=== PATIENT | female | born 1950 | race Caucasian/White ===

== ENCOUNTER → 2016-12-10 | Outpatient (CLI) | payer OTHER ==
[~2016-12-10] MED LIST: ALPH300C PO; CALC500T68 PO; COLLAGEN PO; CYAN100020 PO; ESTR10TA PV; FOLI1TAB7 PO; LACT1CAP6 PO; MELATAB2 PO; OMEG10007 PO; PHOS1CAP3 PO; TRET0.027 TOP; [UNRECOGNIZED DRUG - CODE] PO; [UNRECOGNIZED DRUG - OTHER] PO
[2016-12-10 10:03] LABS: CALCIUM 9.3 mg/dl (8.5-10.1)
[2016-12-10 15:08] LABS: CALCIUM URINE < 5.0 mg/dl; URINE COLLECTION TIME 24 HOURS
[2016-12-11 16:52] LABS: ALBUMIN 4.3 G/DL (3.8-4.8); TOTAL PROTEIN 7.2 G/DL (6.2-8.3)
== END | disposition home or self-care (01) ==
LOC: C.LAB1850 07:58
PROVIDERS: ATTEND Internal Medicine Rheumatology
DX: E61.8 Deficiency of other specified nutrient elements (principal)

== ENCOUNTER → 2017-05-14 | Outpatient (CLI) | payer OTHER ==
--- NOTE | 2017-05-14 15:17 | MAMMOGRAPHY REPORT ---
BILATERAL DIGITAL SCREENING MAMMOGRAM WITH CAD: 05/14/2017 CLINICAL HISTORY: Routine screening. Patient has no complaints. TECHNIQUE: Bilateral CC and MLO views were obtained. Current study was also evaluated with a Computer Aided Detection (CAD) system. COMPARISON: Comparison is made to exams dated: 03/27/2016 mammogram, 02/16/2015 mammogram, 12/25/2012 raymon mogram, 12/20/2011 mammogram - [facility], 07/20/2008, and 10/08/2006. BREAST COMPOSITION: The tissue of both breasts is heterogeneously dense, which may obscure small mas ses. FINDINGS: There is a 4.5 mm nodular asymmetry in the slightly medial, middle one third of the left b reast, only seen on the CC tomosynthesis images (slice 37/56), for which additional spot compression tomosynthesis views and possible ultrasound are recommended. There are scattered benign-appearing calcifications in both breasts. No other suspicious mass, archi tectural distortion or cluster of microcalcifications is seen. IMPRESSION: ACR BI-RADS CATEGORY 0: INCOMPLETE EVALUATION: NEED ADDITIONAL IMAGING EVALUATION The 4.5 mm nodular asymmetry in the slightly medial left breast needs additional evaluation. The patient will be called to schedule an appointment. Approximately 10% of breast cancers are not detected with mammography. A negative mammographic report should not delay biopsy if a clinically suggestive mass is present. Roslyn Williamson M.D. ay/:05/14/2017 14:18:02 Ad Taker: Esperanza CASE)(Renate), [facility] letter sent: Addl Imaging 0 BI-RADS Code: ACR BI-RADS Category 0: Incomplete Evaluation: Need Additional Imaging Evaluation
== END | disposition home or self-care (01) ==
LOC: C.MAMM 11:42
PROVIDERS: ATTEND Internal Medicine
DX: Z12.31 Encounter for screening mammogram for malignant neoplasm of breast (principal); N63.20 Unspecified lump in the left breast, unspecified quadrant

== ENCOUNTER → 2017-10-24 | Outpatient (CLI) | payer OTHER ==
[~2017-10-24] MED LIST changes: -FOLI1TAB7 PO; +FOLI1TAB8 PO
[2017-10-24 12:29] LABS: ALBUMIN 3.9 gm/dl (3.4-5.0); ALT/SGPT 25 U/L (12-78); BLOOD UREA NITROGEN 14 mg/dl (7-18); CALCIUM 9.2 mg/dl (8.5-10.1); CARBON DIOXIDE 28 mmol/L (21-32); CHOLESTEROL 200 mg/dl (0-200); CREATININE 0.78 mg/dl (0.60-1.20); GLUCOSE 88 mg/dl (70-99); POTASSIUM 3.8 mmol/L (3.5-5.1); SODIUM 139 mmol/L (136-145)
[2017-10-24 12:40] LABS: ALKALINE PHOSPHATASE 43 U/L (45-117); AST/SGOT 16 U/L (15-37); LDL CHOLESTEROL CALCULATED 102 mg/dl; TOTAL PROTEIN 7.4 gm/dl (6.4-8.2)
== END | disposition home or self-care (01) ==
LOC: C.LAB1850 10:22
PROVIDERS: ATTEND Internal Medicine
DX: Z00.00 Encounter for general adult medical examination without abnormal findings (principal); M81.0 Age-related osteoporosis without current pathological fracture; E55.9 Vitamin D deficiency, unspecified

== ENCOUNTER 2019-02-11 21:39 | Observation (INO) ==
[2019-02-11 21:57] LABS: Basophils # (auto) 0.01 K/uL (0-0.2); Basophils % (auto) 0.1 %; Eosinophils # (auto) 0.04 K/uL (0-0.5); Eosinophils % (auto) 0.5 %; Hematocrit (blood only) 36.7 % (37-47); Hemoglobin 12.4 g/dL (12.0-16.0); Immature Granulocytes # (auto) 0.01 K/uL (0.00-0.02); Immature Granulocytes % (auto) 0.1 %; Lymphocytes # (auto) 2.94 K/uL (1.2-3.4); Lymphocytes % (auto) 40.1 %; Mean Corpuscular Hgb Conc 33.8 g/dL (32-36); Mean Corpuscular Volume 91.5 fL (80-100); Mean Platelet Volume 10.5 fL (7.4-10.4); Monocytes # (auto) 0.45 K/uL (0.11-0.59); Monocytes % (auto) 6.1 %; Neutrophils # (auto) 3.88 K/uL (1.4-6.5); Neutrophils % (auto) 53.1 %; Platelet Count 221 K/uL (130-400); RDW Coefficient of Variation 12.9 % (11.5-14.5); RDW Standard Deviation 43.5 fL (36.4-46.3); Red Blood Count 4.01 M/uL (4.2-5.4); White Blood Count 7.33 K/uL (4.8-10.8)
[2019-02-11 22:07] LABS: Alanine Aminotransferase 162 U/L (12-78); Aspartate Aminotransferase 285 U/L (15-37); BUN Creatinine Ratio 24.6 (10-20); Blood Urea Nitrogen 19 mg/dl (7-18); Calcium 9.1 mg/dl (8.5-10.1); Carbon Dioxide 24 mmol/L (21-32); Chloride 106 mmol/L (98-107); Est GFR (African American) 89.3; Glucose 154 mg/dl (70-99); Magnesium 1.9 mg/dl (1.8-2.4); Potassium 3.6 mmol/L (3.5-5.1); Sodium 140 mmol/L (136-145)
--- NOTE | 2019-02-11 22:10 | XRay Report ---
XR chest 1V portable CLINICAL HISTORY: Chest Pain dyspnea COMPARISON STUDY: No previous studies for comparison. FINDINGS: The bones soft tissues and hemidiaphragms are normal. The cardiomediastinal silhouette is n ormal. The lungs are clear. The pulmonary vasculature is normal. IMPRESSION: Negative chest. The above report was generated using voice recognition software. It may contain grammatical, syntax or spelling errors. Electronically signed by: Dank Goldstein M.D. 02/11/2019 10:09 PM
[2019-02-11 22:12] LABS: Albumin Globulin Ratio 1.1 (0.9-2); Alkaline Phosphatase 59 U/L (45-117); Bilirubin,Total 0.8 mg/dl (0.2-1); Globulin 3.5 gm/dl (2.5-4.0); Total Protein 7.5 gm/dl (6.4-8.2); Troponin I < 0.015 ng/ml (0-0.045)
[2019-02-11] MEDS ORDERED: OPTIRAY 320 125ml IV PRN (22:40)
--- NOTE | 2019-02-11 22:50 | Emergency Department Note ---
History of Present Illness General Chief complaint: Chest Pain Stated complaint: CHEST PAIN Time Seen by Provider: 02/11/19 21:51 History of Present Illness Maximum Pain Intensity: 1 This 68-year-old presents to the ER complaining of squeezing chest pain Location: Mid chest Quality: Squeezing Severity: Moderate Duration: Tonight Timing: Started tonight Context: Symptoms got worse and patient summoned EMS Modifying factors: better with nitroglycerin; worse with nothing Patient states she had 3 glasses of wine tonight with dinner. She states shortly after that she developed the chest pain. She describes it as squeezing and severe. She was concerned and called EMS. Patient denies dyspnea, abdominal pain, leg weakness, fever, chills, cough, congestion, diaphoresis. No prior heart disease. She has no active medical problems. She states she has a glass of wine daily. Home Medications Home Medications Medication Instructions Recorded Confirmed Type Ca carb-Ca gluc-Mg ox-Mg gluco 1 tab PO QAM 02/11/19 02/11/19 History [Calcium Magnesium] Phosphatidylserine 0 mg PO QAM 02/11/19 History Sleep Optimizer 1 cap PO HS 02/11/19 History alpha lipoic acid 0 mg PO QAM 02/11/19 02/11/19 History coenzyme Q10 [Co Q-10] 0 mg PO QAM 02/11/19 02/11/19 History cyanocobalamin (vitamin B-12) 0 mcg PO QAM 02/11/19 02/11/19 History estradiol [Vagifem] 10 mcg VAGINAL 2XWK 02/11/19 02/11/19 History omega 7-egq-rpl-fish oil [Fish Oil] 1 cap PO QAM 02/11/19 02/11/19 History tretinoin 1 applic TOPICAL UD PRN 02/11/19 02/11/19 History Allergies Allergy/AdvReac Type Severity Reaction Status Date / Time grass pollen-perennial rye, Allergy Unknown hay fever Verified 02/11/19 22:57 standar lactose Allergy Unknown GI UPSET Verified 02/11/19 22:57 nickel Allergy Unknown contact Verified 02/11/19 22:57 dermatitis No Known Drug Allergies Allergy Unknown NKDA Verified 02/11/19 22:57 pollen extracts Allergy Unknown hayfever Verified 02/11/19 22:57 Past Med/Surg History Medical History No acute medical problems Social History Feels Safe at Home: Yes Smoking Status: Former smoker Review of Systems All systems reviewed & are unremarkable except as noted in HPI & below Physical Exam Vital Signs Vital Signs - 24 hr 02/11/19 21:49 02/11/19 22:19 02/11/19 22:49 Temperature 36.7 C Temperature Source Oral Sepsis Recent Fever Within 48 Hours No Sepsis New/Unexplained Change in Mental Status No Sepsis Action Taken by Nursing No Action Required Pulse Rate 71 Pulse Rate [Apical] 68 Respiratory Rate 21 20 Respiratory Effort / Characteristics Non-Labored Non-Labored Spontaneous Respiratory Depth Normal Normal Respiratory Pattern Regular Regular Blood Pressure 122/77 Blood Pressure [Right Arm] 126/75 Blood Pressure Mean 92 Blood Pressure Mean [Right Arm] 92 Blood Pressure Position Lying Blood Pressure Position [Right Arm] Lying Pulse Oximetry 98 98 100 Oxygen Delivery Method Room Air Room Air Room Air 02/11/19 23:22 Temperature Temperature Source Sepsis Recent Fever Within 48 Hours Sepsis New/Unexplained Change in Mental Status Sepsis Action Taken by Nursing Pulse Rate Pulse Rate [Apical] 70 Respiratory Rate 20 Respiratory Effort / Characteristics Respiratory Depth Normal Respiratory Pattern Blood Pressure Blood Pressure [Right Arm] 106/67 Blood Pressure Mean Blood Pressure Mean [Right Arm] 80 Blood Pressure Position Blood Pressure Position [Right Arm] Pulse Oximetry 96 Oxygen Delivery Method Room Air VITALS: Vitals are noted on the nurse's note and reviewed by myself. Vital signs stable. GENERAL: Pleasant female, in no acute distress, nondiaphoretic, well-developed well-nourished. SKIN: The skin was without rashes, erythema, edema, or bruising. There is no tenting of the skin. Capillary reflex less than 2 seconds. HEAD: Normocephalic atraumatic. EARS: External auditory canals clear, tympanic membranes pearly clement without erythema or effusion bilaterally. EYES: Pupils equal round and reactive to light and accommodation. Conjunctivae without injection, sclerae without icterus. Extraocular movements intact. NOSE: Patent, turbinates without inflammation or discharge. MOUTH: Mucous membranes moist. Pharynx without erythema or exudate. Uvula midline. Airway patent. Tongue does not deviate. NECK: Supple without nuchal rigidity. No lymphadenopathy. No thyromegaly. Cervical spine is nontender. No JVD. HEART: Regular rate and rhythm LUNGS: Clear to auscultation bilaterally without wheezes, rales or rhonchi. No retractions or accessory muscle use. ABDOMEN: Positive bowel sounds x 4. Normal tympanic percussion. Soft, nontender, without masses or organomegaly. Richardson sign negative. No guarding or rebound tenderness. No CVA tenderness MUSCULOSKELETAL: No muscle atrophy, erythema, or edema noted. NEURO: Patient was alert and oriented to person place and time. Normal sensation to light and sharp touch. No focal neurological deficits. Course Administered Medications Ioversol (Optiray 320 125ml) 116 ml IV ONCE PRN PRN Reason: Interaction Checking Stop: 02/15/19 22:39 Last Admin: 02/11/19 22:41 Dose: 116 ml Documented by: [id number] Medical Decision Making Medical Records Attestation: I reviewed the patient's medical records. Home Medications Current Medication List: was personally reviewed by me Laboratory Data Attestation: I reviewed the patient's lab results. Result diagrams: 02/11/19 21:12 02/11/19 21:12 Lab Results 02/11/19 02/11/19 02/11/19 Range/Units 21:12 21:12 21:54 WBC 7.33 (4.8-10.8) K/uL RBC 4.01 L (4.2-5.4) M/uL Hgb 12.4 (12.0-16.0) g/dL Hct 36.7 L (37-47) % MCV 91.5 (80-100) fL MCH 30.9 (25-34) pg MCHC 33.8 (32-36) g/dL RDW Std Deviation 43.5 (36.4-46.3) fL RDW Coeff of [place] 12.9 (11.5-14.5) % Plt Count 221 (130-400) K/uL MPV 10.5 H (7.4-10.4) fL Immature Gran % (Auto) 0.1 % Neut % (Auto) 53.1 % Lymph % (Auto) 40.1 % [place] % (Auto) 6.1 % Eos % (Auto) 0.5 % Baso % (Auto) 0.1 % Immature Gran # (Auto) 0.01 (0.00-0.02) K/uL Neut # (Auto) 3.88 (1.4-6.5) K/uL Lymph # (Auto) 2.94 (1.2-3.4) K/uL [place] # (Auto) 0.45 (0.11-0.59) K/uL Eos # (Auto) 0.04 (0-0.5) K/uL Baso # (Auto) 0.01 (0-0.2) K/uL PT (9.0-12.0) Seconds INR (0.9-1.1) APTT (21.0-31.0) Seconds PTT Ratio Sodium 140 (136-145) mmol/L Potassium 3.6 (3.5-5.1) mmol/L Chloride 106 (98-107) mmol/L Carbon Dioxide 24 (21-32) mmol/L Anion Gap 10.0 (3-11) BUN 19 H (7-18) mg/dl Creatinine 0.78 (0.6-1.2) mg/dl Est Cr Clr Drug Dosing 60.0 ml/min Est GFR ( Amer) 89.3 Est GFR (Non-Af Amer) 77.0 BUN/Creatinine Ratio 24.6 H (10-20) Glucose 154 H (70-99) mg/dl Calcium 9.1 (8.5-10.1) mg/dl Magnesium 1.9 (1.8-2.4) mg/dl Total Bilirubin 0.8 (0.2-1) mg/dl AST 285 H (15-37) U/L ALT 162 H (12-78) U/L Alkaline Phosphatase 59 (45-117) U/L POC Troponin I < 0.03 (0-0.045) ng/ml Troponin I < 0.015 (0-0.045) ng/ml Total Protein 7.5 (6.4-8.2) gm/dl Albumin 4.0 (3.4-5.0) gm/dl Globulin 3.5 (2.5-4.0) gm/dl Albumin/Globulin Ratio 1.1 (0.9-2) Lipase 226 (73-393) U/L Ethyl Alcohol mg/dL (0-3) mg/dl 02/11/19 02/11/19 Range/Units 22:55 22:55 WBC (4.8-10.8) K/uL RBC (4.2-5.4) M/uL Hgb (12.0-16.0) g/dL Hct (37-47) % MCV (80-100) fL MCH (25-34) pg MCHC (32-36) g/dL RDW Std Deviation (36.4-46.3) fL RDW Coeff of [place] (11.5-14.5) % Plt Count (130-400) K/uL MPV (7.4-10.4) fL Immature Gran % (Auto) % Neut % (Auto) % Lymph % (Auto) % [place] % (Auto) % Eos % (Auto) % Baso % (Auto) % Immature Gran # (Auto) (0.00-0.02) K/uL Neut # (Auto) (1.4-6.5) K/uL Lymph # (Auto) (1.2-3.4) K/uL [place] # (Auto) (0.11-0.59) K/uL Eos # (Auto) (0-0.5) K/uL Baso # (Auto) (0-0.2) K/uL PT 10.6 (9.0-12.0) Seconds INR 1.0 (0.9-1.1) APTT 22.6 (21.0-31.0) Seconds PTT Ratio 0.8 Sodium (136-145) mmol/L Potassium (3.5-5.1) mmol/L Chloride (98-107) mmol/L Carbon Dioxide (21-32) mmol/L Anion Gap (3-11) BUN (7-18) mg/dl Creatinine (0.6-1.2) mg/dl Est Cr Clr Drug Dosing ml/min Est GFR ( Amer) Est GFR (Non-Af Amer) BUN/Creatinine Ratio (10-20) Glucose (70-99) mg/dl Calcium (8.5-10.1) mg/dl Magnesium (1.8-2.4) mg/dl Total Bilirubin (0.2-1) mg/dl AST (15-37) U/L ALT (12-78) U/L Alkaline Phosphatase (45-117) U/L POC Troponin I (0-0.045) ng/ml Troponin I (0-0.045) ng/ml Total Protein (6.4-8.2) gm/dl Albumin (3.4-5.0) gm/dl Globulin (2.5-4.0) gm/dl Albumin/Globulin Ratio (0.9-2) Lipase (73-393) U/L Ethyl Alcohol mg/dL 132.8 H (0-3) mg/dl Imaging Data Attestation: I personally reviewed and interpreted this imaging study as follows: Blood Pressure Blood Pressure Findings: Normal blood pressure MDM Narrative Prior records/ancillary studies reviewed. Triage Nursing notes reviewed. Additional history obtained from family. The patient's history was concerning for chest pain. Differential diagnosis: Etiologies such as cardiac ischemia, aortic dissection, pulmonary embolism, pneumonia, pneumothorax, musculoskeletal, infections, pericarditis, myocarditis, esophageal rupture, gastrointestinal, as well as others were entertained. Physical examination: As above. ER treatment provided: Nitroglycerin. Patient already took aspirin On reassessment the patient felt better. Diagnostic interpretation by me: The electrocardiogram was negative for pathologic change. Normal sinus, normal intervals, no acute ST-T wave changes. Rate 71. Impression normal sinus rhythm interpreted by myself I think arrhythmia is unlikely. EKG shows normal sinus rhythm with no interval abnormalities such as QT prolongation or WPW. There are no findings to suggest Brugada syndrome. Cardiac monitoring in the emergency department reveals no tachycardic or bradycardic dysrhythmia. Hypertrophic cardiomyopathy was considered but there are no clear historical elements pointing toward this. EKG is not suggestive. The QRS voltage is not extremely large and there are no sug gestive Q waves. The labs revealed negative troponin. Elevated LFTs. Hepatitis panel was sent. Alcohol level was sent. Negative troponin Imaging studies: XR chest 1V portable CLINICAL HISTORY: Chest Pain dyspnea COMPARISON STUDY: No previous studies for comparison. FINDINGS: The bones soft tissues and hemidiaphragms are normal. The cardiomediastinal silhouette is normal. The lungs are clear. The pulmonary vasculature is normal. IMPRESSION: Negative chest. The above report was generated using voice recognition software. It may contain grammatical, syntax or spelling errors. Electronically signed by: Dank Goldstein M.D. 02/11/2019 10:09 PM Dictated: 02/11/19 2207 Transcribed: 02/11/192207 Patient: YADY CAMPA Admit Date: 02/11/19 MR#: [id number] Address1: [address] [place] Acct ID:[id number] Address2: Date: 1950 [facility] Zip: [place] [address] Age: 68 Location: ED Sex: F Room/Bed: Att Phy: Diagnosis: CHEST PAIN Deanna Phy: Jenniffer Rain MD Service Date: 02/11/19 [facility] Phy: Interpreting Phy: Dank Goldstein MD Admit Phy: Ordering Phy: Maribell Quinones .CHRISTIANO cc: ~ CT angio chest dissec wo/w con CT DOSE: 391.73 mGy.cm HISTORY: Chest pain cp to back TECHNIQUE: Multiaxial CT images of the chest, abdomen, and pelvis were performed both before and after the intravenous administration of contrast to evaluate the aorta. Maximal intensity projection images were also obtained. A dose lowering technique was utilized adhering to the principles of ALARA. COMPARISON STUDY: None. FINDINGS: Thoracic aorta is negative for aneurysm or dissection. Pulmonary vasculature and enhances appropriately. There are no significant filling defects. Lungs are considered clear. No focal infiltrate. No evidence for pneumothorax. Limited evaluation of the upper abdomen is unremarkable. There is a small cyst of the left buttock lobe unchanged from the prior exam. IMPRESSION: 1. Negative CT of the chest, thoracic aorta, and pulmonary arterial vasculature. The above report was generated using voice recognition software. It may contain grammatical, syntax or spelling errors. Electronically signed by: Dank Goldstein M.D. HEART SCORE: Hx: high/mod/low suspicion: 1 ECG: ST depression/nonspecific changes/normal: 0 Age: Greater than 65/45-64/less than 45: 2 Risk factors: (Hypertension, hyperlipidemia, diabetes, coronary disease, tobacco use, cocaine use): 0 Troponin: Greater than 2 times normal limits/1-2 times normal limits/normal: 0 Total: 3 Consultation: A consultation was placed with the hospitalist. The case was discussed and diagnostics were reviewed. The patient was evaluated in the ER for further treatment. Exam and history seem consistent with chest pain that was relieved with nitrogly cerin. Repeat EKG is unchanged. First troponin was negative. Patient's LFTs are elevated. She does drink alcohol. Coags and hepatitis panel was sent. Medicine was consulted. Patient is agreeable treatment plan of admission. By the evaluation outlined above emergent etiologies such as aortic dissection, pulmonary embolism, pneumonia, pneumothorax, infections, pericarditis, myocarditis, gastrointestinal, as well as others were deemed relatively unlikely. Case reviewed with my attending The chart was completed utilizing [employer] voice recognition software. Grammatical errors, random word insertions, pronoun errors, and incomplete sentences are an occassional consequence of this system due to software limitations, ambient noise, and hardware issues. Any formal questions or concerns about the content, text, or information contained within the body of this dictation should be directly addressed to the physician resident assistant cna for clarification. Impression & Plan Atypical chest pain, Elevated liver enzymes Discharge Plan Visit Data Chief Complaint: Chest Pain Stated Complaint: CHEST PAIN ED Provider: Noel Bragg ED Midlevel Provider: Maribell Quinones Discharge Problem: Atypical chest pain, Elevated liver enzymes Patient Disposition: Being Evaluated by Hospitalist Condition: Good Forms Stand Alone Forms: Call Back Authorization, My [facility] Prescriptions Prescriptions: No Action cyanocobalamin (vitamin B-12) 1,000 mcg Tablet PO QAM RF: 0 tretinoin 0.05 % cream 1 applic topical UD PRN (Reason: Rash) RF: 0 coenzyme Q10 [Co Q-10] 50 mg Capsule PO QAM RF: 0 estradiol [Vagifem] 10 mcg Tablet 10 mcg VAGINAL 2XWK RF: 0 omega 9-ddk-mhs-fish oil [Fish Oil] 1,000 mg (120 mg-180 mg) Capsule 1 cap PO QAM RF: 0 alpha lipoic acid 200 mg Capsule PO QAM RF: 0 Calcium Magnesium 500 mg calcium -250 mg Tablet 1 tab PO QAM RF: 0 Phosphatidylserine 100 mg PO QAM RF: 0 Sleep Optimizer 1 cap PO HS RF: 0 Referrals Referrals: Jenniffer Rain MD [Primary Care Provider] -
--- NOTE | 2019-02-11 23:06 | Emergency Department Note ---
ED Visit Note The patient presents to the emergency department with chief complaint of chest pain. A CT scan angiogram of the chest did not show acute process. Her pain improved with nitroglycerin. I have personally seen and evaluated the patient with the physician medical assistant cardiology. I agree with the diagnostic/management decisions and have personally been in volved in these decisions and agree with the diagnosis. .
[2019-02-11 23:22] LABS: Partial Thromboplastin Ratio 0.8; Partial Thromboplastin Time 22.6 Seconds (21.0-31.0); Prothrombin Time 10.6 Seconds (9.0-12.0)
--- NOTE | 2019-02-11 23:42 | History & Physical Report ---
Date of Service February 11, 2019 Assessment & Plan (1) Atypical chest pain: This is a 73-year-old female who is otherwise healthy who presents with bilateral subchondral sensation of tightness and spasm associated with dyspnea that occurred shortly after her dinner earlier this evening. Her who has a cardiac history told her to take 2 aspirin and they called EMS. She was given nitroglycerin in route which helped relieve her symptoms. Her symptoms did recur here in the ED. Apparently self resolved. She states she drank 3 glasses of wine with dinner as well. She denies any history of reflux. She exercises daily including weights and abdominal crunches and denies any anginal symptoms with activity. She states that she actually presented to her PCP 4 weeks ago with similar complaints but it was only on her left side. At that point labs and an ultrasound was done -CBC was unremarkable, chemistry was unremarkable including no transaminitis. Ultrasound showed prior cholecystectomy, small bilateral peripelvic renal cysts with no hydronephrosis and a 1.2 cm left hepatic lobe cyst. ED course: Labs remarkable for transaminitis AST/ALT 285/162. Negative troponin x1. Negative lipase. Her EKG shows no dynamic ST changes, chest x-ray, CTA of the chest have all been normal. Atypical chest pain: -Consult cardiology -TTE in a.m. -Monitor on telemetry -Daily aspirin -Fasting lipid panel and A1c and TSH in the morning FEN/GI: N.p.o. except for sips, normal saline at 80 mL's per hour DVT ppx: Lovenox CODE STATUS: Full code as discussed with patient DISPO: Med telemetry (2) Elevated liver enzymes: Hepatitis panel pending Trend CMP Could be nonalcoholic steatosis, hepatitis, congestive. Lobe cyst likely unrelated to her current complaints. History of Present Illness Chief Complaint: Bilateral subchondral tightness and spasms, dyspnea, postprandial Primary Care Provider: Jenniffer Rain MD This is a 73-year-old female who is otherwise healthy who presents with bilateral subchondral sensation of tightness and spasm associated with dyspnea that occurred shortly after her dinner earlier this evening. Her who has a cardiac history told her to take 2 aspirin and they called EMS. She was given nitroglycerin in route which helped relieve her symptoms. Her symptoms did recur here in the ED. Apparently self resolved. She states she drank 3 glasses of wine with dinner as well. She denies any history of reflux. She exercises daily including weights and abdominal crunches and denies any anginal symptoms with activity. She states that she actually presented to her PCP 4 weeks ago with similar complaints but it was only on her left side. At that point labs and an ultrasound was done -CBC was unremarkable, chemistry was unremarkable including no transaminitis. Ultrasound showed prior cholecystectomy, small bilateral peripelvic renal cysts with no hydronephrosis and a 1.2 cm left hepatic lobe cyst. ED course: Labs remarkable for transaminitis AST/ALT 285/162. Negative troponin x1. Negative lipase. Her EKG shows no dynamic ST changes, chest x-ray, CTA of the chest have all been normal. PMH: Cholecystitis, hip fracture. PSH: Cholecystectomy SH: Exercises daily without any anginal symptoms. Lives with her . Drinks 1 to 3 glasses of wine per night. Denies drug use. Allergies Allergy/AdvReac Type Severity Reaction Status Date / Time grass pollen-perennial rye, Allergy Unknown hay fever Verified 02/11/19 22:57 standar lactose Allergy Unknown GI UPSET Verified 02/11/19 22:57 nickel Allergy Unknown contact Verified 02/11/19 22:57 dermatitis No Known Drug Allergies Allergy Unknown NKDA Verified 02/11/19 22:57 pollen extracts Allergy Unknown hayfever Verified 02/11/19 22:57 Home Medications Home Medications Medication Instructions Recorded Confirmed Type Calcium Magnesium 1 tab PO QAM 02/11/19 02/11/19 History Phosphatidylserine 0 mg PO QAM 02/11/19 History Sleep Optimizer 1 cap PO HS 02/11/19 History alpha lipoic acid 0 mg PO QAM 02/11/19 02/11/19 History coenzyme Q10 [Co Q-10] 0 mg PO QAM 02/11/19 02/11/19 History cyanocobalamin (vitamin B-12) 0 mcg PO QAM 02/11/19 02/11/19 History estradiol [Vagifem] 10 mcg VAGINAL 2XWK 02/11/19 02/11/19 History omega 2-ado-obr-fish oil [Fish Oil] 1 cap PO QAM 02/11/19 02/11/19 History tretinoin 1 applic TOPICAL UD PRN 02/11/19 02/11/19 History Past Med/Surg History Medical History No acute medical problems Social History Preferred Language: Albanian Communication Ability: Effective Hematology Supervisor Required: No Beliefs That Will Affect Care: None Current Living Situation: Spouse Feels Safe at Home: Yes Smoking Status: Former smoker Tobacco Type: cigarettes Second Hand Exposure: No Hx Alcohol Use: Yes Alcohol type: wine Hx Substance Use: No Review of Systems Review of Systems: All systems reviewed & are unremarkable except as noted in HPI & below Physical Exam Physical Exam: Vitals noted and within normal limits GENERAL: Awake, alert to person, place, and time, nontoxic-appearing, in no distress. HENT: Normocephalic, atraumatic. Mucus membranes appear moist. EYES: Normal conjunctiva. Sclera non-icteric. EOMI. NECK: Supple. Full range of motion. No JVD. RESPIRATORY: Clear to auscultation. Normal work of breathing. CARDIAC: Regular rate, normal rhythm. Extremities warm and well perfused, 2+ radial pulses bilaterally; 2+ posterior tibialis pulses bilaterally. Mild systolic 1 out of 6 systolic murmur. ABDOMEN: Soft, non-distended. Mild tenderness to palpation in the epigastric area. No rebound or guarding. LOWER EXTREMITIES: Inspection of calves reveal equal size bilaterally. They are non-tender. No edema. No discoloration. NEURO: No gross focal motor deficits noted. Sensation in tact. CN II-XII grossly in tact. . SKIN: Rash not present. No jaundice noted. Significant lesions not present. PSYCH: Appropriate mood and affect. Cooperative. MSK: TTP at left costal midclavicular line along rib 7 through 9 Exam as done by Monica Bailon MD, Leadership Intern. Results & Data Vital Signs (Past 12 Hours) Vital Signs Temp Pulse Pulse Resp BP BP Pulse Ox 02/11/19 23:22 70 20 106/67 96 02/11/19 22:49 68 20 126/75 100 02/11/19 22:19 98 02/11/19 21:49 36.7 C 71 21 122/77 98 Laboratory Results 02/11/19 02/11/19 02/11/19 Range/Units 22:55 22:55 22:55 WBC (4.8-10.8) K/uL RBC (4.2-5.4) M/uL Hgb (12.0-16.0) g/dL Hct (37-47) % MCV (80-100) fL MCH (25-34) pg MCHC (32-36) g/dL RDW Std Deviation (36.4-46.3) fL RDW Coeff of [place] (11.5-14.5) % Plt Count (130-400) K/uL MPV (7.4-10.4) fL Immature Gran % (Auto) % Neut % (Auto) % Lymph % (Auto) % [place] % (Auto) % Eos % (Auto) % Baso % (Auto) % Immature Gran # (Auto) (0.00-0.02) K/uL Neut # (Auto) (1.4-6.5) K/uL Lymph # (Auto) (1.2-3.4) K/uL [place] # (Auto) (0.11-0.59) K/uL Eos # (Auto) (0-0.5) K/uL Baso # (Auto) (0-0.2) K/uL PT (9.0-12.0) Seconds INR (0.9-1.1) APTT (21.0-31.0) Seconds PTT Ratio Sodium (136-145) mmol/L Potassium (3.5-5.1) mmol/L Chloride (98-107) mmol/L Carbon Dioxide (21-32) mmol/L Anion Gap (3-11) BUN (7-18) mg/dl Creatinine (0.6-1.2) mg/dl Est Cr Clr Drug Dosing ml/min Est GFR ( Amer) Est GFR (Non-Af Amer) BUN/Creatinine Ratio (10-20) Glucose (70-99) mg/dl Calcium (8.5-10.1) mg/dl Magnesium (1.8-2.4) mg/dl Total Bilirubin (0.2-1) mg/dl AST (15-37) U/L ALT (12-78) U/L Alkaline Phosphatase (45-117) U/L POC Troponin I (0-0.045) ng/ml Troponin I (0-0.045) ng/ml Total Protein (6.4-8.2) gm/dl Albumin (3.4-5.0) gm/dl Globulin (2.5-4.0) gm/dl Albumin/Globulin Ratio (0.9-2) Lipase (73-393) U/L Ethyl Alcohol mg/dL 132.8 H (0-3) mg/dl Hepatitis A IgM Ab Pending Hep Bs Antigen Neg (Neg) Hep B Core IgM Ab Pending Hepatitis C Antibody Pending 02/11/19 02/11/19 02/11/19 Range/Units 22:55 21:54 21:12 WBC (4.8-10.8) K/uL RBC (4.2-5.4) M/uL Hgb (12.0-16.0) g/dL Hct (37-47) % MCV (80-100) fL MCH (25-34) pg MCHC (32-36) g/dL RDW Std Deviation (36.4-46.3) fL RDW Coeff of [place] (11.5-14.5) % Plt Count (130-400) K/uL MPV (7.4-10.4) fL Immature Gran % (Auto) % Neut % (Auto) % Lymph % (Auto) % [place] % (Auto) % Eos % (Auto) % Baso % (Auto) % Immature Gran # (Auto) (0.00-0.02) K/uL Neut # (Auto) (1.4-6.5) K/uL Lymph # (Auto) (1.2-3.4) K/uL [place] # (Auto) (0.11-0.59) K/uL Eos # (Auto) (0-0.5) K/uL Baso # (Auto) (0-0.2) K/uL PT 10.6 (9.0-12.0) Seconds INR 1.0 (0.9-1.1) APTT 22.6 (21.0-31.0) Seconds PTT Ratio 0.8 Sodium 140 (136-145) mmol/L Potassium 3.6 (3.5-5.1) mmol/L Chloride 106 (98-107) mmol/L Carbon Dioxide 24 (21-32) mmol/L Anion Gap 10.0 (3-11) BUN 19 H (7-18) mg/dl Creatinine 0.78 (0.6-1.2) mg/dl Est Cr Clr Drug Dosing 60.0 ml/min Est GFR ( Amer) 89.3 Est GFR (Non-Af Amer) 77.0 BUN/Creatinine Ratio 24.6 H (10-20) Glucose 154 H (70-99) mg/dl Calcium 9.1 (8.5-10.1) mg/dl Magnesium 1.9 (1.8-2.4) mg/dl Total Bilirubin 0.8 (0.2-1) mg/dl AST 285 H (15-37) U/L ALT 162 H (12-78) U/L Alkaline Phosphatase 59 (45-117) U/L POC Troponin I < 0.03 (0-0.045) ng/ml Troponin I < 0.015 (0-0.045) ng/ml Total Protein 7.5 (6.4-8.2) gm/dl Albumin 4.0 (3.4-5.0) gm/dl Globulin 3.5 (2.5-4.0) gm/dl Albumin/Globulin Ratio 1.1 (0.9-2) Lipase 226 (73-393) U/L Ethyl Alcohol mg/dL (0-3) mg/dl Hepatitis A IgM Ab Hep Bs Antigen (Neg) Hep B Core IgM Ab Hepatitis C Antibody 02/11/19 Range/Units 21:12 WBC 7.33 (4.8-10.8) K/uL RBC 4.01 L (4.2-5.4) M/uL Hgb 12.4 (12.0-16.0) g/dL Hct 36.7 L (37-47) % MCV 91.5 (80-100) fL MCH 30.9 (25-34) pg MCHC 33.8 (32-36) g/dL RDW Std Deviation 43.5 (36.4-46.3) fL RDW Coeff of [place] 12.9 (11.5-14.5) % Plt Count 221 (130-400) K/uL MPV 10.5 H (7.4-10.4) fL Immature Gran % (Auto) 0.1 % Neut % (Auto) 53.1 % Lymph % (Auto) 40.1 % [place] % (Auto) 6.1 % Eos % (Auto) 0.5 % Baso % (Auto) 0.1 % Immature Gran # (Auto) 0.01 (0.00-0.02) K/uL Neut # (Auto) 3.88 (1.4-6.5) K/uL Lymph # (Auto) 2.94 (1.2-3.4) K/uL [place] # (Auto) 0.45 (0.11-0.59) K/uL Eos # (Auto) 0.04 (0-0.5) K/uL Baso # (Auto) 0.01 (0-0.2) K/uL PT (9.0-12.0) Seconds INR (0.9-1.1) APTT (21.0-31.0) Seconds PTT Ratio Sodium (136-145) mmol/L Potassium (3.5-5.1) mmol/L Chloride (98-107) mmol/L Carbon Dioxide (21-32) mmol/L Anion Gap (3-11) BUN (7-18) mg/dl Creatinine (0.6-1.2) mg/dl Est Cr Clr Drug Dosing ml/min Est GFR ( Amer) Est GFR (Non-Af Amer) BUN/Creatinine Ratio (10-20) Glucose (70-99) mg/dl Calcium (8.5-10.1) mg/dl Magnesium (1.8-2.4) mg/dl Total Bilirubin (0.2-1) mg/dl AST (15-37) U/L ALT (12-78) U/L Alkaline Phosphatase (45-117) U/L POC Troponin I (0-0.045) ng/ml Troponin I (0-0.045) ng/ml Total Protein (6.4-8.2) gm/dl Albumin (3.4-5.0) gm/dl Globulin (2.5-4.0) gm/dl Albumin/Globulin Ratio (0.9-2) Lipase (73-393) U/L Ethyl Alcohol mg/dL (0-3) mg/dl Hepatitis A IgM Ab Hep Bs Antigen (Neg) Hep B Core IgM Ab Hepatitis C Antibody Supervising Physician Co-Signing Physician Notes Attending addendum: I have physically seen this patient, have supervised the medical residents activities, and agree with the H&P unless as otherwise noted. Assessment and Plan: Chest pain- The patient will be admitted to telemetry for serial cardiac enzymes, serial EKG's, cardiac rhythm monitoring and a 2-D echocardiogram with Dopplers. Chewable aspirin 81 mg daily. Abnormal liver enzymes- Patient reports that she had 3 alcoholic drinks prior to going out and working outside last night. AST 285, ALT 162. Enzymes not improved in the morning, would do further work-up including ultrasound. Discussed other etiologies such as ulcers, cholecystitis, gastritis and others as potential causes of her symptoms. Remaining orders notations as noted. PG Care Time/CCT Total # of Minutes Spent Total Time Spent with Patient: Total time spent is greater than 50% in coordination of care (as documented) at patient's floor/unit and/or counseling patient: Resident Activity Tracking Resident Involvement: Resident Care Provided Care Provided: Adult Hospital Medicine
[2019-02-11 23:51] LABS: Hepatitis B Surface Antigen Neg (Neg)
[2019-02-12 01:19] LABS: Hepatitis C IgG 13Yrs+Old_Rflx Neg (Neg)
[2019-02-12] MEDS ORDERED: MAGNESIUM HYDROXIDE SUSP 30 ML UDC PO PRN (01:54)
[2019-02-12] MEDS ORDERED: ONDANSETRON INJ 2 MG/ML 2 ML VIAL IV PRN (01:54)
[2019-02-12] MEDS ORDERED: ACETAMINOPHEN 325 MG TAB PO PRN (01:54)
[2019-02-12] MEDS ORDERED: ALUMINUM/MAGNESIUM SUSP 30 ML UDC PO PRN (01:54)
[2019-02-12] MEDS ORDERED: NITROGLYCERIN SL 0.4 MG/TAB TAB SL PRN (01:54)
[2019-02-12] MEDS ORDERED: POLYETHYLENE (MIRALAX) 17 GM PACK PO PRN (01:54)
[2019-02-12] MEDS: SODIUM CHLORIDE 0.9% 1000ML 1,000 ML IV SCH ×2 (02:18→14:57)
[2019-02-12 06:33] LABS: Basophils # (auto) 0.02 K/uL (0-0.2); Basophils % (auto) 0.3 %; Eosinophils # (auto) 0.06 K/uL (0-0.5); Eosinophils % (auto) 0.8 %; Hematocrit (blood only) 36.3 % (37-47); Hemoglobin 12.3 g/dL (12.0-16.0); Immature Granulocytes # (auto) 0.01 K/uL (0.00-0.02); Immature Granulocytes % (auto) 0.1 %; Lymphocytes # (auto) 2.07 K/uL (1.2-3.4); Lymphocytes % (auto) 27.6 %; Mean Corpuscular Hgb Conc 33.9 g/dL (32-36); Mean Corpuscular Volume 92.8 fL (80-100); Monocytes # (auto) 0.57 K/uL (0.11-0.59); Monocytes % (auto) 7.6 %; Neutrophils # (auto) 4.77 K/uL (1.4-6.5); Neutrophils % (auto) 63.6 %; Platelet Count 223 K/uL (130-400); RDW Coefficient of Variation 13.2 % (11.5-14.5); RDW Standard Deviation 44.6 fL (36.4-46.3); Red Blood Count 3.91 M/uL (4.2-5.4)
[2019-02-12 06:45] LABS: Prothrombin Time 10.1 Seconds (9.0-12.0)
[2019-02-12 07:10] LABS: Albumin Level 3.7 gm/dl (3.4-5.0); BUN Creatinine Ratio 18.4 (10-20); Calcium 8.8 mg/dl (8.5-10.1); Creatinine Clr Calc Pharmacy 70.2 ml/min; Est GFR (African American) 105.3; Est GFR (Non-African American) 90.9; Potassium 4.1 mmol/L (3.5-5.1)
--- NOTE | 2019-02-12 07:19 | Family Medicine Progress Note ---
Date of Service February 12, 2019 Results & Data Vital Signs (Past 12 Hours) Vital Signs Temp Pulse Pulse Resp BP BP Pulse Ox 02/12/19 04:00 36.8 C 70 20 134/75 97 02/12/19 03:02 67 02/12/19 01:56 36.4 C L 83 16 118/74 94 02/12/19 01:29 75 18 140/81 96 02/11/19 23:22 70 20 106/67 96 02/11/19 22:49 68 20 126/75 100 02/11/19 22:19 98 02/11/19 21:49 36.7 C 71 21 122/77 98 PG Care Time/CCT Total # of Minutes Spent Total Time Spent with Patient: Total time spent is greater than 50% in coor dination of care (as documented) at patient's floor/unit and/or counseling patient: Resident Activity Tracking Resident Involvement: Resident Care Provided Care Provided: Adult Hospital Medicine
[2019-02-12 07:30] LABS: Albumin Globulin Ratio 1.1 (0.9-2); Bilirubin,Total 0.7 mg/dl (0.2-1); Globulin 3.3 gm/dl (2.5-4.0)
[2019-02-12 08:11] LABS: Estimated Average Glucose 111 mg/dl; Hemoglobin A1C 5.5 % (4.5-5.6)
[2019-02-12] MEDS ORDERED: ASPIRIN 81 MG ECTAB PO SCH (09:00)
[2019-02-12] MEDS ORDERED: ENOXAPARIN INJ 30 MG/0.3 ML SYR SQ SCH (09:00)
[2019-02-12] MEDS ORDERED: ENOXAPARIN INJ 40 MG/0.4 ML SYR SQ SCH (09:00)
--- NOTE | 2019-02-12 15:05 | Discharge Summary ---
Date of Service February 12, 2019 Admission HPI Per Admitting Provider This is a 73-year-old female who is otherwise healthy who presents with bilateral subchondral sensation of tightness and spasm associated with dyspnea that occurred shortly after her dinner earlier this evening. Her who has a cardiac history told her to take 2 aspirin and they called EMS. She was given nitroglycerin in route which helped relieve her symptoms. Her symptoms did recur here in the ED. Apparently self resolved. She states she drank 3 glasses of wine with dinner as well. She denies any history of reflux. She exercises daily including weights and abdominal crunches and denies any anginal symptoms with activity. She states that she actually presented to her PCP 4 weeks ago with similar complaints but it was only on her left side. At that point labs and an ultrasound was done -CBC was unremarkable, chemistry was unremarkable including no transaminitis. Ultrasound showed prior cholecystectomy, small bilateral peripelvic renal cysts with no hydronephrosis and a 1.2 cm left hepatic lobe cyst. ED course: Labs remarkable for transaminitis AST/ALT 285/162. Negative troponin x1. Negative lipase. Her EKG shows no dynamic ST changes, chest x-ray, CTA of the chest have all been normal. PMH: Cholecystitis, hip fracture. PSH: Cholecystectomy SH: Exercises daily without any anginal symptoms. Lives with her . Drinks 1 to 3 glasses of wine per night. Denies drug use. Admission Exam Per Admitting Provider Vitals noted and within normal limits GENERAL: Awake, alert to person, place, and time, nontoxic-appearing, in no distress. HENT: Normocephalic, atraumatic. Mucus membranes appear moist. EYES: Normal conjunctiva. Sclera non-icteric. EOMI. NECK: Supple. Full range of motion. No JVD. RESPIRATORY: Clear to auscultation. Normal work of breathing. CARDIAC: Regular rate, normal rhythm. Extremities warm and well perfused, 2+ radial pulses bilaterally; 2+ posterior tibialis pulses bilaterally. Mild systolic 1 out of 6 systolic murmur. ABDOMEN: Soft, non-distended. Mild tenderness to palpation in the epigastric area. No rebound or guarding. LOWER EXTREMITIES: Inspection of calves reveal equal size bilaterally. They are non-tender. No edema. No discoloration. NEURO: No gross focal motor deficits noted. Sensation in tact. CN II-XII grossly in tact. . SKIN: Rash not present. No jaundice noted. Significant lesions not present. PSYCH: Appropriate mood and affect. Cooperative. MSK: TTP at left costal midclavicular line along rib 7 through 9 Principal Diagnosis chest pain Discharge Exam Constitutional well developed and well nourished; no acute distress Eyes + anicteric sclerae Respiratory normal respiratory effort, lungs clear to auscultation no retractions and no cough Auscultation: no crackles, no rales, no wheezes and no pleural rub Cardiovascular RRR, no murmur, no edema Heart Sounds: normal S1 and normal S2; no click, no gallop, no murmur and no cardiac rub Extremities: no pedal edema Gastrointestinal (Abdomen) normal bowel sounds, soft, nontender, no hepatosplenomegaly chest pain not reproducible with deep palpation to epigastrum and to bilateral intercostal muscles Neurologic awake Psychiatric Orientation: oriented x 3 Discharge Data Allergies Allergy/AdvReac Type Severity Reaction Status Date / Time grass pollen-perennial rye, Allergy Unknown hay fever Verified 02/11/19 22:57 standar lactose Allergy Unknown GI UPSET Verified 02/11/19 22:57 nickel Allergy Unknown contact Verified 02/11/19 22:57 dermatitis No Known Drug Allergies Allergy Unknown NKDA Verified 02/11/19 22:57 pollen extracts Allergy Unknown hayfever Verified 02/11/19 22:57 Consultations 02/11/19 23:31 ED Decision to Admit Stat Ordered Studies 02/11/19 22:02 CT angio chest dissec wo/w con Stat Stress echo - normal (see scanned report in chart) Hospital Course (1) Atypical chest pain: Patient came to [facility] ED on 02/11/19 with bilateral subcostal chest pain that started after she ate dinner (+3 glasses of wine). She denied any radiation down L arm to up to jaw, nor did she experience any diaphoresis at the time. She did however, become SOB. The pain resolved within 1 minutes with 2 ASA and 1 nitroglycerin (administer by EMS). The pain never recurred during her hospital stay. She has minimal cardiovascular risk factors (no diabetes, HTN or HLD). Only pertinent is smoking history but she quit 20 years ago. Troponins x2 were negative. CXR was unremarkable. EKG showed only 1st degree AV sanjana block (no ST segment changes). She had a stress ECHO, which was reported as normal. Collectively, this makes Mrs. Muñiz's chest pain unlikely to be of cardiac origin. Based on the timing after her dinner and the 3 glasses of wine, our hunch is of GI origin. Of note, on routine CMP, Mrs. Agustin had an elevated AST of 285, ALT of 162 on admission. Given her recent abdominal U/S results, we feel as though these lab results are best explained by inflammation from alcohol, although not excessivley so. After taking about her routine drinking habits, Mrs. Agustin consumes 5-10 alcoholic beverages per week. We advised her to cut down to 7 drinks per week, of no more than 4 ounces each. Outpatient To-Do List: -recheck liver enzymes in 1 month (2) Elevated liver enzymes: Total Time Total Time Spent Total Time Spent (In Minutes): greater than 30 minutes Discharge Plan Discharge Items Patient Disposition: Home - Self-Care Reason For Visit: CHEST PAIN Discharge Diagnosis: Chest pain Condition: Good Discharge Goals: Decrease discomfort Activity: Resume your previous activity Activity Comment: as tolerated Non-emergency contact: Primary Care Provider Call non-emergency contact if: you have any medication questions Follow-up/Referrals: Jenniffer Rain MD [Primary Care Provider] - 02/20/19 1:30 pm (Please, follow up at Dr. Rain's office with her associate, Dr. Coelho, on SaturdayFebruary 20 at 13:30 pm. *If you need to change this appointment, call the office at [phone].) Diet: Regular Addtl Provider Instructions: You were hospitalized at [facility] on 02/11/19-02/12/19 for chest pain. We preformed serial blood draws to assess troponin levels, multiple EKGs and a stress-echocardiogram, none of which showed evidence that you zane tained a heart attack. The most likely etiology of the discomfort you experienced is a gastrointestinal discomfort. In the future, if the discomfort occurs after meal consumption, you may try taking TUMS. However, if it does not reside after 30 minutes, please return to the ED. As part of routine testing, we noticed that your liver enzymes (known as ALT and AST) were elevated. You should have your primary care doctor recheck these in one month's time. We suspect they indicate mild liver inflammation from alcohol consumption. Please try to limit your alcohol intake to 7 drinks per week, at no more than 5 oz per drink. Prescriptions: Continued cyanocobalamin (vitamin B-12) 1,000 mcg Tablet PO QAM RF: 0 tretinoin 0.05 % cream 1 applic topical UD PRN (Reason: Rash) RF: 0 coenzyme Q10 [Co Q-10] 50 mg Capsule PO QAM RF: 0 estradiol [Vagifem] 10 mcg Tablet 10 mcg VAGINAL 2XWK RF: 0 omega 5-mry-lgj-fish oil [Fish Oil] 1,000 mg (120 mg-180 mg) Capsule 1 cap PO QAM RF: 0 alpha lipoic acid 200 mg Capsule PO QAM RF: 0 Calcium Magnesium 500 mg calcium -250 mg Tablet 1 tab PO QAM RF: 0 Phosphatidylserine 100 mg PO QAM RF: 0 Sleep Optimizer 1 cap PO HS RF: 0 Stand-Alone Forms: Call Back Authorization, [facility] Discharge Orders: Discharge Order (Routine); Ordered 02/12/19 Ordered By: Muriel Du Admission Data Admit Date/Time: 02/11/19 23:47 Attending Provider: Dell Lemos Admit Provider: Monica Bailon Primary Care Provider: Jenniffer Rain Other Providers: aJcobo Varghese Service: Telemetry Medical Other Interventions: Discharge Summary Assessment (RN) Last Done: 02/12/19 16:24 DC Date/Time DO NOT enter until pt leaves facility: 02/12/19 17:06 Supervising Physician Co-Signing Physician Notes I personally examined the patient and verified all espinal points of history and exam, discussed case, and agree with decision making with Dr Du. Feeling better. Pain totally resolved. Most likely appeared to be GI related. Extensive discussion on cardiac work-up and reassuring findings. Also discussed LFTs and high likelihood of relationship to alcohol ingestion. She expressed good understanding. Vitals noted, in general she is awake and alert pleasant no distress. HEENT normocephalic atraumatic mucous membranes moist. Breathing unlabored no accessory muscle use good effort. Skin shows no rashes no pallor or icterus. Chest painextremely reassuring to not be any cardiac or pulmonary pathology given work-up above. Stable for home. Most likely was upper GI distress related to her meal and fairly heavy alcohol intake. Transaminitismore than likely relates to alcohol ingestion, no other overt pathology evident. Full hepatitis panel is pending for completeness. Outpatient follow-up in this regard. Recommended repeat LFTs in about a month. Discussed safe limits of alcohol ingestion, she seems to have this more as a habit than an addiction, and likely will be low risk to decrease her intake. Resident Activity Tracking Resident Involvement: Resident Care Provided Care Provided: Adult Hospital Medicine
== END 2019-02-12 17:06 | disposition home or self-care (01) ==
LOC: 2N 21:39 → ED 21:39 → SUATTDRO 23:47 → 2N 02-12 01:29